=== PATIENT | female | born 1970 | race Caucasian/White ===

== ENCOUNTER 2017-04-01 11:34 | Emergency (ER) | payer OTHER ==
[~2017-04-01] VITALS: Ht 165.1 cm; Wt 71.2 kg
[~2017-04-01 11:34] MED LIST: MAGN1SOL2 PO; TRAM50 PO
[2017-04-01 11:39] VITALS: BP 139/96; PULSE 73; RESP 16; TEMP 97.8; O2SAT 100
[2017-04-01] MEDS ORDERED: AMBI6.25 PO (12:00)
[2017-04-01] MEDS ORDERED: ONDANSETRON HCL 4 MG/2 ML VIAL IV PUSH ONE (12:15)
[2017-04-01] MEDS ORDERED: SODIUM CHLOR 0.9% 1000 ML INJ 1,000 ML IV SCH (12:15)
[2017-04-01] MEDS ORDERED: HYDROmorphone HCL PF 1 MG/ML VIAL IV PUSH ONE (12:15)
--- NOTE | 2017-04-01 12:19 | PD ---
HPI Chief Complaint: Abdominal Pain Time Seen by Provider: 12:07 Travel History International Travel<30 days: No Contact w/Intl Traveler<30days: No Traveled to known affect area: No History of Present Illness HPI This 47-year-old female is complaining of abdominal pain. She's been having lower abdominal pain for about 12 days. It started about 12 days ago and was quite bad that it seemed to get better for a couple of days. She had a menstrual period and after that worse again. She has had some chills but no fever. She has had similar pain in the past attributed to ovarian cysts. She did have surgery for hemorrhagic ovarian cyst several years ago. She has not had any other abdominal surgery. She was nauseated with the pain this morning. She thinks the pain is a little bit worse on the left side. She took some ibuprofen with minimal relief. She has not had any dysuria. She is quite sure that she is not PFSH Past Medical History Anxiety: Yes Cardiovascular Problems: No Diminished Hearing: No Genitourinary: No Headaches: Yes Medical other: Yes (INSOMNIA) Musculoskeletal: Yes Neurologic: Yes Reproductive: No Respiratory: No Immunizations Current: Yes Migraines: Yes ?: Not LMP: 03/25/2017 : 3 Para: 0 : 3 Ovarian Cysts: Yes Past Surgical History Gynecologic Surgery: Yes (ovarian cyst removal) Other Surgery: Yes (BREAST REDUCTION) Social History Alcohol Use: Yes (3-4 X WEEK) Tobacco Use: Yes (1 PPD) Substance Use: No Allergies-Medications (Allergen,Severity, Reaction): Coded Allergies: Codeine (Verified Allergy, Severe, ITCH, 04/01/17) Medrol (Verified Allergy, Severe, SYNCOPE, 04/01/17) Reported Meds & Prescriptions Reported Meds & Active Scripts Active Reported Ambien CR (Zolpidem Tartrate) 6.25 Mg Tab 6.25 Mg PO HS PRN Review of Systems General / Constitutional: No: Fever, Chills Eyes: No: Diploplia, Blurred Vision HENT: No: Headaches, Vertigo Cardiovascular: No: Chest Pain or Discomfort Respiratory: No: Cough Gastrointestinal: Positive: Nausea Genitourinary: Positive: Pelvic Pain, No: Urgency, Frequency Musculoskeletal: No: Myalgias, Arthralgias Skin: No Rash Endocrine: No: Heat Intolerance Physical Exam Narrative GENERAL: Well-developed female SKIN: Focused skin assessment warm/dry. HEAD: Atraumatic. Normocephalic. EYES: Pupils equal and round. No scleral icterus. No injection or drainage. ENT: No nasal bleeding or discharge. Mucous membranes pink and moist. NECK: Trachea midline. No JVD. CARDIOVASCULAR: Regular rate and rhythm. No murmur appreciated. RESPIRATORY: No accessory muscle use. Clear to auscultation. Breath sounds equal bilaterally. GASTROINTESTINAL: Abdomen soft, non-tender, nondistended. Hepatic and splenic margins not palpable. Pelvic: There is slight vaginal discharge. There is some pain with movement of the cervix and bilateral adnexal tenderness greater on the left MUSCULOSKELETAL: No obvious deformities. No clubbing. No cyanosis. No edema. NEUROLOGICAL: Awake and alert. No obvious cranial nerve deficits. Motor grossly within normal limits. Normal speech. PSYCHIATRIC: Appropriate mood and affect; insight and judgment normal. Data Data Last Documented VS Vital Signs Date Time Temp Pulse Resp B/P Pulse Ox O2 Delivery O2 Flow Rate FiO2 04/01/17 14:05 61 16 129/87 99 Room Air 04/01/17 11:39 97.8 Orders Complete Blood Count With Diff (04/01/17 12:13) Basic Metabolic Panel (Bmp) (04/01/17 12:13) Urinalysis - C+S If Indicated (04/01/17 12:13) Ed Urine Pregnancytest Poc (04/01/17 12:13) Sodium Chlor 0.9% 1000 Ml Inj (Ns 1000 M (04/01/17 12:15) Ondansetron Inj (Zofran Inj) (04/01/17 12:15) Hydromorphone Pf Inj (Dilaudid Pf Inj) (04/01/17 12:15) Us Pelvis Comp W Transvaginal (04/01/17 12:13) Labs Laboratory Tests Test 04/01/17 04/01/17 12:25 12:30 Urine Collection Type CLEAN CATCH Urine Color YELLOW Urine Turbidity CLEAR Urine pH 6.0 Urine Specific [place] 1.014 Urine Protein NEG mg/dL Urine Glucose (UA) NEG mg/dL Urine Ketones NEG mg/dL Urine Occult Blood NEG Urine Nitrite NEG Urine Bilirubin NEG Urine Leukocyte Esterase NEG Urine Squamous Epithelial 6-8 /hpf Cells Microscopic Urinalysis Comment CULT NOT INDICATED White Blood Count 6.4 TH/MM3 Red Blood Count 4.60 MIL/MM3 Hemoglobin 14.1 GM/DL Hematocrit 42.0 % Mean Corpuscular Volume 91.3 FL Mean Corpuscular Hemoglobin 30.8 PG Mean Corpuscular Hemoglobin 33.7 % Concent Red Cell Distribution Width 12.6 % Platelet Count 304 TH/MM3 Mean Platelet Volume 8.2 FL Neutrophils (%) (Auto) 70.1 % Lymphocytes (%) (Auto) 21.1 % Monocytes (%) (Auto) 7.6 % Eosinophils (%) (Auto) 0.6 % Basophils (%) (Auto) 0.6 % Neutrophils # (Auto) 4.5 TH/MM3 Lymphocytes # (Auto) 1.4 TH/MM3 Monocytes # (Auto) 0.5 TH/MM3 Eosinophils # (Auto) 0.0 TH/MM3 Basophils # (Auto) 0.0 TH/MM3 CBC Comment DIFF FINAL Differential Comment Sodium Level 142 MEQ/L Potassium Level 3.9 MEQ/L Chloride Level 105 MEQ/L Carbon Dioxide Level 27.7 MEQ/L Anion Gap 9 MEQ/L Blood Urea Nitrogen 16 MG/DL Creatinine 0.74 MG/DL Estimat Glomerular Filtration 84 ML/MIN Rate Random Glucose 105 MG/DL Calcium Level 9.0 MG/DL [facility] Medical Decision Making Medical Screen Exam Complete: Yes Emergency Medical Condition: Yes Medical Record Reviewed: Yes Differential Diagnosis Differential includes ovarian cyst, cervicitis, Narrative Course Ultrasound was done and shows a nabothian cyst. No cyst is seen in the right ovary and the left ovary is not visualized. Patient will be treated for cervicitis with Rocephin and doxycycline Diagnosis Primary Impression: Cervicitis Scripts Oxycodone-Acetaminophen (Percocet)7.5-325 mg Tab1 Tab PO Q4H PRN (PAIN) #20 TAB Ref 0 Prov:Deangelo Asif MD 04/01/17 Doxycycline Hyclate 100 Mg [id number] Mg PO BID #20 CAP Prov:Deangelo Asif MD 04/01/17 Disposition: 01 DISCHARGE HOME Condition: Stable Deangelo Asif MD Apr 01, 2017 12:19
[2017-04-01 12:49] LABS: AUTOMATED NEUTROPHIL # 4.5 TH/MM3 (1.8-7.7); BASOPHIL % 0.6 % (0.0-2.0); EOSINOPHIL % 0.6 % (0.0-4.0); HEMO FLAGS DIFF FINAL; LYMPH % 21.1 % (9.0-44.0); LYMPHOCYTE # 1.4 TH/MM3 (1.0-4.8); MEAN CELL VOLUME 91.3 FL (80.0-100.0); MEAN CORPUSCULAR HEMOGLOBIN 30.8 PG (27.0-34.0); MEAN CORPUSCULAR HGB CONC 33.7 % (32.0-36.0); MONO % 7.6 % (0.0-8.0); NEUT % 70.1 % (16.0-70.0); PLATELET COUNT 304 TH/MM3 (150-450); RED CELL DISTRIBUTION WIDTH 12.6 % (11.6-17.2); WHITE BLOOD COUNT 6.4 TH/MM3 (4.0-11.0)
[2017-04-01 12:51] LABS: BLOOD, URINE NEG (NEG); GLUCOSE,URINE NEG (NEG); KETONE, URINE NEG (NEG); METHOD OF COLLECTION CLEAN CATCH; NITRITE,URINE NEG (NEG)
[2017-04-01 12:52] LABS: URINE COLOR YELLOW (YELLW/STRAW)
[2017-04-01 12:55] LABS: COMMENT (UR) CULT NOT INDICATED; CULTURE IF INDICATED CULT NOT INDICATED
[2017-04-01 12:57] LABS: POTASSIUM 3.9 MEQ/L (3.5-5.1)
[2017-04-01 13:00] LABS: BICARBONATE 27.7 MEQ/L (21.0-32.0)
--- NOTE | 2017-04-01 14:03 | RADRPT ---
EXAM DATE/TIME: 04/01/2017 12:37 [facility] COMPARISON: US PELVIS COMP W/TRANSVAGINAL, March 03, 2012, 18:10. INDICATIONS : Pelvic pain. MEDICAL HISTORY : . Perimenopausal. Ovarian cysts. Migraines. Anxiety. Back pain. SURGICAL HISTORY : Breast reduction. Cervical biopsy. Hemorrhagic cyst removal. ENCOUNTER: Subsequent ACUITY: 2 weeks PAIN SCORE: 9/10 LOCATION: Bilateral pelvis MEASUREMENTS: UTERUS: 8.6 x 4.7 x 3.5 cm ENDOMETRIAL STRIPE: 3 mm RIGHT OVARY: 1.6 x 1.0 x 1.0 cm LEFT OVARY: Non visualized FINDINGS: UTERUS: The myometrium has homogeneous echotexture without mass. Incidental note is made of a cyst near the cervix with measuring 0.9 x 1.0 x 0.7 cm consistent with a nabothian cyst. RIGHT OVARY: Ovary contains no mass or significant cystic lesion. Normal vascularity. LEFT OVARY: Not visualized with transabdominal or transvaginal imaging. MISCELLANEOUS: No free fluid. CONCLUSION: 1. 2.9 x 1.2 x 2.7 cm probable nabothian cyst. 2. Nonvisualization of the left ovary. 3. Otherwise, unremarkable pelvic ultrasound examination. Jamarcus Bustamante MD on April 01, 2017 at 13:56 Board Certified Radiologist. This report was verified electronically.
[2017-04-01 14:05] VITALS: BP 129/87; PULSE 61; RESP 16; O2SAT 99
[2017-04-01] MEDS ORDERED: DOXY100C PO (14:39)
[2017-04-01] MEDS ORDERED: PERC7.5T13 PO (14:39)
[2017-04-01] MEDS ORDERED: CEFTRIAXONE IV ONE (15:00)
[2017-04-01] MEDS ORDERED: SODIUM CHLORIDE 0.9% IV ONE (15:00)
[2017-04-01] MEDS ORDERED: DIFL150T PO (15:36)
[2017-04-01 16:24] VITALS: BP 131/76
[2017-04-01 19:46] LABS: CHLAMYDIA PCR NOT DETECTED (NOT DETECT); NEISSERIA PCR NOT DETECTED (NOT DETECT)
== END 2017-04-01 16:25 | disposition home or self-care (01) ==
LOC: PHED 11:34
DX: N88.8 Other specified noninflammatory disorders of cervix uteri (principal); F17.210 Nicotine dependence, cigarettes, uncomplicated
CPT/HCPCS: 76830; 76856; 80048; 81001; 85025; 87491; 87591; 96361; 96365; 96375; 99285; J0696; J1170; J2405; J7030